=== PATIENT | female | born 1955 | race Caucasian/White ===

== ENCOUNTER 2020-09-28 08:34 | Outpatient (CLI) | payer OTHER, SELFPAY ==
--- NOTE | ~2020-09-28 | XR_ITS ---
XR chest 2V DATE: 09/28/2020 09:34 INDICATION: Persistent dry cough for 6 months TECHNIQUE: PA and lateral views COMPARISON: 01/24/2015 PA and lateral views FINDINGS: Normal heart size. No hilar or mediastinal enlargement. There is mild aortic unfolding. No pulmonary infiltrate or consolidation, pleural effusion or pulmonary vascular congestion or pneumo thorax is detected. Several anchor devices are noted at the right shoulder. IMPRESSION: No active cardiopulmonary disease Reviewed, dictated and finalized at location A.
--- NOTE | ~2020-09-28 | MM_ITS ---
EXAMINATION: MM screening [facility] BI w alexandra HISTORY: Screening TECHNIQUE: Craniocaudal and mediolateral oblique 3-D tomosynthesis images were obtained and synthetic 2-D images were generated. CAD analysis was submitted and interpreted. COMPARISON: 06/26/2011 BREAST PARENCHYMAL COMPOSITION: There are scattered areas of fibroglandular density. FINDINGS: The left breast is stable without evidence for malignancy. There are subtle asymmetries in the upper outer quadrant of the right breast with possible architectural distortion. IMPRESSION: 1. Subtle right breast asymmetries with possible architectural distortion. 2. Additional mammographic views and possible breast ultrasound are recommended. BI-RADS Category 0: Incomplete: Needs additional imaging evaluation. Reviewed, dictated and finalized at location A. IMPRESSION: 1. Subtle right breast asymmetries with possible architectural distortion. 2. Additional mammographic views and possible breast ultrasound are recommended . BI-RADS Category 0: Incomplete: Needs additional imaging evaluation.
[2020-09-28 09:44] LABS: Alanine Aminotransferase 127 U/L (14-59); Albumin Level 3.9 g/dL (3.4-5.0); Alkaline Phosphatase 75 U/L (46-116); Anion Gap 10 mmol/L (8-16); Aspartate Amino Transferase 95 U/L (15-37); Bilirubin Direct 0.1 mg/dL (0-0.2); Bilirubin,Total 0.3 mg/dL (0.00-1.00); Blood Urea Nitrogen 10 mg/dL (7-18); Calcium 9.1 mg/dL (8.5-10.1); Carbon Dioxide 30 mmol/L (21-32); Chloride 102 mmol/L (98-108); Cholesterol 258 mg/dL (0-200); Estimated Glomerular Filt Rate > 60; Glucose 200 mg/dL (70-99); HDL Direct 48 mg/dL (40-60); LDL Cholesterol Calculated 177 mg/dL (<130); Osmolality Calculated 299 mOsm/kg (285-295); Potassium 4.1 mmol/L (3.5-5.1); Sodium 142 mmol/L (136-145); Total Protein 7.6 g/dL (6.4-8.2); Triglycerides 166 mg/dL (0-150)
[2020-10-01 14:47] LABS: Vitamin D 25 Hydroxy 10 ng/mL (30-100)
== END 2020-09-28 08:35 | disposition home or self-care (01) ==
PROVIDERS: PCP Family Medicine; Visit Provider Family Medicine
DX: Z00.00 Encounter for general adult medical examination without abnormal findings (principal); E78.5 Hyperlipidemia, unspecified; E55.9 Vitamin D deficiency, unspecified; Z12.31 Encounter for screening mammogram for malignant neoplasm of breast; R05 Cough; Z13.1 Encounter for screening for diabetes mellitus
CPT/HCPCS: 36415; 71046; 77063; 77067; 80048; 80061; 80076; 82306

== ENCOUNTER 2020-10-15 10:11 | Outpatient (CLI) | payer OTHER, SELFPAY ==
--- NOTE | ~2020-10-15 | MMUS_ITS ---
EXAMINATION: MM diagnostic ling RT w alexandra, US breast RT limited HISTORY: Follow-up right breast asymmetries TECHNIQUE: Additional 3-D tomosynthesis images of right were performed and synthetic 2-D images were generated. CAD analysis was submitted and interpreted. High resolution Limited right breast ultrasoun d was performed. COMPARISON: 09/28/2020 BREAST PARENCHYMAL COMPOSITION: Breast composed of scattered areas of fibroglandular density. FINDINGS: MAMMOGRAPHIC FINDINGS: Focal asymmetries are less dense with spot compression and mediolateral views. No definite architectu ral distortion is identified. There are scattered benign right breast calcifications. ULTRASOUND: Limited right breast ultrasound: There are multiple small oval hypoechoic masses of the right breast, largest measuring 5 mm at 6:00. These are hypoechoic, oval-shaped, parallel orientation without post erior features or internal vascularity, most likely benign. Several. Have a small echogenic hilum, mo st likely intramammary lymph nodes.. IMPRESSION: 1. Probable benign right breast masses. 2. Recommend 6 month follow-up diagnostic right mammogram and ultrasound. BI-RADS category 3, probably benign findings. Reviewed, dictated and finalized at location A. IMPRESSION: 1. Probable benign right breast masses. 2. Recommend 6 month follow-up diagnostic right mammogram and ultrasound. BI-RADS category 3, probably benign findings.
== END 2020-10-15 10:12 | disposition home or self-care (01) ==
LOC: CHSIMG 10:13
PROVIDERS: PCP Family Medicine; Visit Provider Family Medicine
DX: R92.8 Other abnormal and inconclusive findings on diagnostic imaging of breast (principal)
CPT/HCPCS: 76642; 77061; 77065; G0279

== ENCOUNTER 2020-10-29 14:59 | Outpatient (CLI) | payer OTHER, SELFPAY ==
[2020-10-29 15:51] LABS: Hemoglobin A1C 8.5 % (<5.7)
[2020-10-29 16:34] LABS: Alanine Aminotransferase 71 U/L (14-59); Albumin Level 3.9 g/dL (3.4-5.0); Alkaline Phosphatase 72 U/L (46-116); Aspartate Amino Transferase 72 U/L (15-37); Bilirubin Direct 0.1 mg/dL (0-0.2); Bilirubin,Total 0.4 mg/dL (0.00-1.00); Total Protein 7.3 g/dL (6.4-8.2)
== END 2020-10-29 15:00 | disposition home or self-care (01) ==
LOC: CHSLAB 15:01
PROVIDERS: PCP Family Medicine; Visit Provider Family Medicine
DX: R74.8 Abnormal levels of other serum enzymes (principal); R73.9 Hyperglycemia, unspecified
CPT/HCPCS: 36415; 80076; 83036

== ENCOUNTER 2020-11-22 17:16 | Emergency (ER) | payer OTHER, SELFPAY ==
--- NOTE | ~2020-11-22 | XR_ITS ---
EXAMINATION: XR ribs LT 2V EXAM DATE: 11/22/2020 18:38 INDICATION: LT sided lower rib pain after fall on Thursday. TECHNIQUE: Frontal projection of the upper left ribs, frontal projection of the lower left ribs, obli que projection of the left ribs, without chest x-ray(s) for interpretation. Comparison is made to rain or examination from 09/28/2020. FINDINGS: Acute closed posttraumatic left 9th rib fracture laterally. There is a few millimeters of d isplacement. No evidence of left-sided pneumothorax. 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 IMPRESSION: Acute left 9th rib fracture. Reviewed, dictated and finalized at location G.
--- NOTE | ~2020-11-22 | CT_ITS ---
EXAMINATION: CT brain wo con EXAM DATE: 11/22/2020 18:38 INDICATION: left arm numbness LT arm/LT side of mouth numbness today with chronic RT sided HAs. TECHNIQUE: Spiral CT of the head was performed without contrast. Axial, coronal and sagittal images were reviewed. The dose-length product (DLP) for this examination was 681.00 mGy-cm. The exposure w as tailored according to patient size, and iterative reconstruction (ASIR) was used as additional dos e reduction technique. There is no prior study for comparison. FINDINGS: There is no acute intraparenchymal hemorrhage. No evidence of intraparenchymal brain mass lesion. No evidence of acute infarction. Please note that initial head CT has limited sensitivity f or small or acute infarctions. Incidental left frontal lobe developmental venous anomaly, a low flow lesion and not a clinically significant finding. There is mild periventricular and subcortical hypo density, nonspecific but probably related to small vessel ischemic disease. There is mild prominenc e of the sulci and ventricles related to cerebral atrophy. 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 There are no extra-axial collections. There is no mass effect or midline shift. Patient mazariegos s had bilateral ocular lens surgery. Soft tissue is unremarkable. The visualized sinuses and mastoi d air cells are well aerated. IMPRESSION: 1. No acute intracranial findings. 2. Chronic age related findings. 3. Incidental left frontal lobe developmental venous anomaly. Reviewed, dictated and finalized at location G.
[2020-11-22 17:30] VITALS: BP 176/101; PULSE 79; RESP 15; TEMP 36.9; O2SAT 99
--- NOTE | 2020-11-22 17:54 | ECG_ITS ---
Measurements Intervals [place] Rate: 71 P: 66 WA: 167 QRS: 17 QRSD: 93 T: 134 QT: 382 QTc: 417 Interpretive Statements SINUS RHYTHM DELAYED PRECORDIAL R/S TRANSITION CONSIDER INFERIOR INFARCT, AGE INDETERMINATE ST-T WAVE ABNORMALITY IN HIGH LATERAL LEADS- CONSIDER ISCHEMIA BASELINE ARTIFACT- II, III, AVF ABNORMAL ECG Electronically Signed On 11-23-2020 7:35:06 CDT by Vladimir Cook D.O.
[2020-11-22 17:59] LABS: Glucose Point of Care 119 mg/dl (65-105)
[2020-11-22 18:33] LABS: Partial Thromboplastin Time 25.6 SEC (23.90-30.70); Prothrombin Time 10.5 Seconds (9.50-12.10)
[2020-11-22 18:37] LABS: Alanine Aminotransferase 56 U/L (14-59); Alkaline Phosphatase 57 U/L (46-116); Anion Gap 13 mmol/L (8-16); Aspartate Amino Transferase 28 U/L (15-37); Bilirubin,Total 0.3 mg/dL (0.00-1.00); Blood Urea Nitrogen 15 mg/dL (7-18); Calcium 9.5 mg/dL (8.5-10.1); Carbon Dioxide 27 mmol/L (21-32); Chloride 99 mmol/L (98-108); Estimated CRCL calculation 64 ml/min; Estimated Glomerular Filt Rate > 60; Glucose 117 mg/dL (70-99); Osmolality Calculated 289 mOsm/kg (285-295); Potassium 3.8 mmol/L (3.5-5.1); Sodium 139 mmol/L (136-145); Total Protein 7.7 g/dL (6.4-8.2)
--- NOTE | 2020-11-22 18:49 | ED.NEUROSD ---
HPI - Neuro Symptoms/Deficit General Chief Complaint: Neuro Symptoms/Deficit Stated Complaint: side pain, numbness in L hand and face Source: patient and family Mode of arrival: ambulatory History of Present Illness HPI Narrative: This is a 65-year-old female with recently diagnosed diabetes had a fall a few days ago and is complaining of left rib pain, earlier today the patient has been having some numbness and tingling in her in her face and her her left hand currently symptoms have disappeared, she is complaining of left rib pain with no shortness of breath has a history of diabetes and high blood pressure currently no headaches no nausea vomiting no blurry vision no neurological deficits has good range of motion and equal strength in upper and lower extremities with no facial droop no tongue deviation Onset (ago): day(s) Time: 18:50 Timing confirmed by: family member History of same: Yes Severity: mild Quality: tingling Relieving factors: none Exacerbating factors: none Related Data Home Medications Medication Instructions Recorded Confirmed duloxetine 60 mg PO DAILY 11/22/20 11/22/20 ergocalciferol (vitamin D2) 50,000 unit PO WEEKLY 11/22/20 11/22/20 esomeprazole magnesium 40 mg PO DAILY 11/22/20 11/22/20 estradiol 1 mg PO DAILY 11/22/20 11/22/20 gemfibrozil 600 mg PO BID 11/22/20 11/22/20 metformin 500 mg PO BID 11/22/20 11/22/20 metoprolol tartrate 50 mg PO BID 11/22/20 11/22/20 pregabalin 200 mg PO BID 11/22/20 11/22/20 Allergies Allergy/AdvReac Type Severity Reaction Status Date / Time No Known Allergies Allergy Unknown Unverified 10/08/17 20:33 Review of Systems Review of Systems: All systems reviewed & are unremarkable except as noted in HPI and below PMFSH Past Medical History Medical History Diabetes mellitus HTN (hypertension) Family History Family History Father Hypertension Family history of diabetes mellitus in first degree relative Sibling Hypertension Family history of elevated blood lipids Mother Carcinoma of colon Patient's mother is Grandparent Diabetes mellitus Social History Social History Smoking status: Never smoker Second hand tobacco smoke exposure: No Alcohol intake: never Exam Const: General: no acute distress Orientation/consciousness: patient oriented x3 HENMT: Head: normal to inspection Eyes: Conjunctivae: conjunctivae normal Pupils: Equal, round and reactive pupils present EOM: EOMs intact bilaterally Direct Ophthalmoscopy: no photophobia Neck: Neck: normal visual inspection, no lymphadenopathy and no meningeal signs Chest: Chest palpation & inspection: normal inspection of the chest Other: pain left mid rib area Resp: Effort & Inspection: normal respiratory effort Auscultation: clear to auscultation bilaterally Cardio: Rate: regular rate Rhythm: regular rhythm GI: GI Palp: Yes Soft to palpation : General: Yes no CVA tenderness Urinary Catheter: Urinary Catheter: patent and draining Back/Spine/Pelvis: Back: no CVA tenderness Skin: General skin exam: normal color Rashes: no rashes Neuro: General: patient oriented x3, moves all extremities, no meningeal signs, no focal motor deficits and CN's II-XI intact bilaterally Cranial nerves: Yes Nystagmus not present Speech: normal speech Extrem: General: normal to inspection and no pedal edema Psych: Mental Status: mental status grossly normal Affect: normal affect Course Course Emergency Course: patient had her labs and EKG and CT scan reviewed with patient and advised follow-up with her primary care physician x-ray of the left ribs shows a 9th rib fracture patient advised to take Tylenol or Motrin for pain and to call her primary care physician for a follow-up as soon as possible. Vital Signs Vit
[2020-11-22 19:06] VITALS: BP 154/87; PULSE 74; RESP 18; TEMP 36.9; O2SAT 99
== END 2020-11-22 19:20 | disposition home or self-care (01) ==
PROVIDERS: Emergency Provider Emergency Medicine; PCP Family Medicine
DX: R20.0 Anesthesia of skin (principal); S22.32XA Fracture of one rib, left side, initial encounter for closed fracture; W19.XXXA Unspecified fall, initial encounter
CPT/HCPCS: 36415; 70450; 71100; 80053; 82948; 84484; 85610; 85730; 93005; 99283; 99284

== ENCOUNTER 2021-04-18 09:59 | Outpatient (CLI) | payer BC, SELFPAY ==
--- NOTE | ~2021-04-18 | MMUS_ITS ---
EXAMINATION: MM diagnostic ling RT w alexandra, US breast RT limited HISTORY: Six-month follow-up for probably benign right breast masses TECHNIQUE: Craniocaudal, mediolateral, and mediolateral oblique 3-D tomosynthesis images of the adelfo ts were performed and synthetic 2-D images were generated. CAD analysis was submitted and interpreted . High resolution limited right breast ultrasound was performed. COMPARISON: 10/15/2020, 09/28/2020, 06/26/2011 BREAST PARENCHYMAL COMPOSITION: There are scattered areas of fibroglandular density. FINDINGS: MAMMOGRAPHIC FINDINGS: An asymmetry persists posterior third of the outer breast on the craniocaudal view which is less evid ent than on the prior screening mammogram. ULTRASOUND: There are stable 4 mm hypoechoic masses at the 12:00 location adjacent to the nipple. A stable 4 mm h ypoechoic mass is present at the 6:00 location near the nipple. There is a stable 3 mm hypoechoic mas s at the 9:00 location 6 cm from the nipple. IMPRESSION: 1. Stable, probably benign right breast masses. 2. Recommend 6 month follow-up right diagnostic mammogram and ultrasound. BI-RADS category 3, probably benign findings. Reviewed, dictated and finalized at location A. IC SAFETY DIRECTOR IMPRESSION: 1. Stable, probably benign right breast masses. 2. Recommend 6 month follow-up right diagnostic mammogram and ultrasound. BI-RADS category 3, probably benign findings.
[2021-04-18 11:41] LABS: Alanine Aminotransferase 27 U/L (14-59); Alkaline Phosphatase 52 U/L (46-116); Anion Gap 11 mmol/L (8-16); Aspartate Amino Transferase 17 U/L (15-37); Bilirubin Direct 0.1 mg/dL (0-0.2); Bilirubin,Total 0.3 mg/dL (0.00-1.00); Blood Urea Nitrogen 15 mg/dL (7-18); Calcium 9.3 mg/dL (8.5-10.1); Carbon Dioxide 27 mmol/L (21-32); Chloride 102 mmol/L (98-108); Cholesterol 244 mg/dL (0-200); Estimated Glomerular Filt Rate > 60; Glucose 119 mg/dL (70-99); HDL Direct 76 mg/dL (40-60); LDL Cholesterol Calculated 143 mg/dL (<130); Osmolality Calculated 291 mOsm/kg (285-295); Potassium 4.5 mmol/L (3.5-5.1); Sodium 140 mmol/L (136-145); Total Protein 7.3 g/dL (6.4-8.2); Triglycerides 123 mg/dL (0-150)
[2021-04-18 12:18] LABS: Hemoglobin A1C 5.9 % (<5.7)
[2021-04-20 15:15] LABS: Vitamin D 25 Hydroxy 43 ng/mL (30-100)
== END 2021-04-18 10:00 | disposition home or self-care (01) ==
LOC: CHSIMG 10:03
PROVIDERS: PCP Family Medicine; Visit Provider Family Medicine
DX: E11.9 Type 2 diabetes mellitus without complications (principal); E78.5 Hyperlipidemia, unspecified; E55.9 Vitamin D deficiency, unspecified; R92.8 Other abnormal and inconclusive findings on diagnostic imaging of breast
CPT/HCPCS: 36415; 76642; 77061; 77065; 80048; 80061; 80076; 82306; 83036; G0279